=== PATIENT | female | born 1960 | race African-American/Black ===

== ENCOUNTER 2019-09-15 07:34 | Inpatient (IN) | payer BC, OTHER ==
[2019-09-02 11:46] LABS: HEMATOCRIT 38.3 % (37.0-47.0); HEMOGLOBIN 12.8 gm/dL (12.0-15.0); MCH 28.2 pg (26.0-34.0); MCHC 33.4 g/dL (28.0-37.0); MCV 84.5 fL (80.0-100.0); RBC 4.54 mil/uL (4.20-5.00); RDW 15.3 % (10.5-14.5); WBC 5.3 thou/uL (4.0-11.0)
[2019-09-02 11:56] LABS: ALBUMIN 3.9 g/dL (3.4-5.0); CALCIUM 9.3 mg/dL (8.5-10.1); CREATININE 0.9 mg/dL (0.6-1.0); POTASSIUM 4.2 mmol/L (3.5-5.1)
[2019-09-02 11:59] LABS: PROTIME 10.4 Seconds (9.3-11.4)
[2019-09-02 12:02] LABS: URINE BILIRUBIN NEGATIVE (Negative); URINE BLOOD NEGATIVE (Negative); URINE CLARITY CLEAR; URINE COLOR YELLOW; URINE GLUCOSE-RANDOM* NEGATIVE (Negative); URINE KETONES NEGATIVE (Negative); URINE LEUKOCYTES-REFLEX NEGATIVE (Negative); URINE NITRITE-REFLEX NEGATIVE (Negative); URINE PROTEIN (DIPSTICK) NEGATIVE (Negative); URINE UROBILINOGEN 0.2 E.U./dl (0.2-1.0)
[2019-09-15] VITALS (12 sets, daily range): BP systolic 113–157; BP diastolic 65–89
[~2019-09-15] VITALS: Ht 170.2 cm; Wt 95.3 kg
[~2019-09-15 07:34] MED LIST: ALEVE220 MG PO; AMITIZA 24 MCG24 MC1 PO; CALCIUM MAGNES1 EAC2 PO; CHOLEST OFF450 MG PO; COUMADIN 2 MG TA2 M1 PO; MELOXICAM7.5 MG PO; MOBIC7.5 MG PO; NEURONTIN300 MG PO; NORCO 10-325 T1 EACH PO; POTASSIUM CITR15 MEQ PO; PROTONIX40 M1 PO; VITAMIN D1000 UNI1 PO; VITAMINC500 PO; WELLBUTRIN 100100 MG PO; WELLBUTRIN SR150 MG PO
--- NOTE | 2019-09-15 13:45 | NUR ---
59 YO FEMALE ADMITTED TO 440 PER BED FROM PACU POST LEFT TOTAL KNEE. PATIENT PLACED ON PULSE OX, AROUSES TO NAME, RESP RATE 12, FALLING TO SLEEP. REQUESTING PAIN MED FOR HIS , EXPLAINED THAT WE NEEDED TO WATCH HER RESP STATUS AND SHE IS VERY DROWSEY. PATIENT WILL NOT VOICE A PAIN LEVEL SHE FALLS OFF TO SLEEP.
--- NOTE | 2019-09-15 20:18 | NUR ---
PATIENT VOIDED 325 ML OF URINE EARLIER, ATTEMPED CLEAR LIQUIDS BUT BECAME NAUSEATED, ZOFRAN OFFER, REFUSED IT AND THEN CALLED INTO THE ROOM FOR 50 ML OF EMESIS AFTER DRINKING SODA. ZOFRAN GIVEN. PAIN MEDS GIVEN WITH PAIN LEVEL NOW 4/10 WITH PAIN TREATMENT CLAIRE. PATIENT AND FAMILY UPDATED TO THE POC AND REASSURANCE GIVEN, VERBALIZED UNDERSTANDING.
[2019-09-16 00:15] VITALS: BP 114/67
--- NOTE | 2019-09-16 05:06 | NUR ---
ASSUMED PT CARE ON 09/15/19. PT HAS C/O N/V AND PAIN. PT IS CONCERNED ABOUT HER LEG BEING SWOLLEN. EVENING MEDICATION AND PAIN MEDICATION HAS BEEN ADMINISTERED. AFTER BEING HELPED TO THE RESTROOM THE AID HELPED THE PT BACK TO BED. WHEN I WENT TO EMPTY THE HEMOVAC I NOTICED THAT THE PATIENTS HEMOVAC TUBING WAS NOT ATTACHED. I NOTIFIED THE RN AND WE RE ATACHED. ICE HAS BEEN RE FILLED AND REAPPLIED TO THE PTS LEFT KNEE.
[2019-09-16 05:15] VITALS: BP 127/71
[2019-09-16 06:23] LABS: HEMATOCRIT 30.2 % (37.0-47.0); HEMOGLOBIN 9.9 gm/dL (12.0-15.0); MCH 28.4 pg (26.0-34.0); MCHC 32.8 g/dL (28.0-37.0); MCV 86.5 fL (80.0-100.0); RBC 3.49 mil/uL (4.20-5.00); RDW 15.3 % (10.5-14.5); WBC 8.2 thou/uL (4.0-11.0)
[2019-09-16 07:32] VITALS: BP 136/78
--- NOTE | 2019-09-16 07:38 | O ---
[facility] [place] [address] OPERATIVE REPORT Name: MARKUS LAWSON Room #: 440-P [facility] IN M.R.#: [id number] Admission: 09/15/19 Attend Phys: Ron Worley MD Discharge: Date of : 58 Report #: [id number] THIS REPORT FOR: //name// CC: Ron Carvalho DATE OF SERVICE: 09/15/2019 PREOPERATIVE DIAGNOSIS: End-stage degenerative arthritis, left knee with valgus malalignment. POSTOPERATIVE DIAGNOSIS: End-stage degenerative arthritis, left knee with valgus malalignment. PROCEDURE: Left total knee arthroplasty. SURGEON: Ron Worley MD INDICATIONS: This 59-year-old female has progressive degenerative arthritis of multiple joints. She underwent right total knee replacement several years ago with good result. She now has progressive valgus malalignment of the left knee and significant pain and limited range of motion. Clinical exam and x-rays confirm severe degenerative arthritis with moderate valgus malalignment. We discussed treatment options and elected to go ahead with total knee replacement. DESCRIPTION OF PROCEDURE: The patient was taken to the operating room where she was placed under general anesthesia. Prophylactic intravenous antibiotics were administered. The left knee and leg were meticulously prepped and draped and a thigh tourniquet inflated to 300 mmHg. An anterior longitudinal skin incision was made and carried along the medial retinaculum. The patella was reflected laterally. Marked degenerative change in all 3 compartments was noted. The Humphries and Nephew knee system was utilized. Intramedullary guides were used on both the femur and the tibia. The femoral cut was made in 5 degrees of valgus correcting the moderate preoperative valgus position. The tibia was cut perpendicular to the long axis of the bone, which also assisted in correcting the valgus position. The femur seemed best suited for a size 4 left femoral component. The tibia was also best suited for a size 4 left tibial component. The patellar surface was resected and a 35 mm patellar button seemed to fit nicely. Appropriate anchor holes were created. A trial reduction was performed and the knee seemed best suited for a size 12 mm polyethylene insert. This allowed full knee extension and flexion beyond 135 degrees. There appeared to be good improvement in the preoperative valgus position. At this point, the trial components were removed. The intramedullary canal was blocked with a bone block on both the femoral and tibial sides. Methyl methacrylate cement was mixed and injected into the porous surface of the proximal tibia. The Humphries and Nephew size 4 left Silvana II nonporous tibial baseplate was applied. It was [address] [address] OPERATIVE REPORT Name: MARKUS LAWSON Room #: 440-P [facility] IN M.R.#: [id number] Admission: 09/15/19 Attend Phys: Ron Worley MD Discharge: Date of : 58 Report #: [id number] positioned appropriately and impacted into place. It seated nicely and appeared to be secure. A 12 mm size 4 Legion cruciate retaining polyethylene liner was snapped into position. It seated nicely and appeared to be secure. The size 4 left cruciate retaining Legion porous femoral component was impacted on the distal femur. It seated nicely and appeared to be secure. A size 35 mm Silvana II patellar resurfacing component was placed on the patella using appropriate anchor holes and cement. It was secured with a patellar clamp until the cement had hardened. The range of motion, alignment, and stability were assessed and felt to be satisfactory. A single Hemovac was left in the wound exiting through a separate stab incision. The fascia was then closed with multiple #1 Vicryl suture. The deeper subcutaneous tissues were closed with 0 Monocryl. The more superficial subcutaneous tissues were closed with 2-0 Monocryl. The skin was closed with skin saray. The patient noted that she forms keloid scars and she requested whatever I might do to help assist with preventing this if possible. I placed 40 mg of Depo-Medrol diluted in 20 mL of Marcaine diffusely along the skin and subcutaneous edges. A sterile dressing was then applied. The patient was awakened and returned to recovery room in good condition. <ELECTRONICALLY SIGNED> By: Ron Worley MD 09/16/19 [id number] [id number] Ron Worley MD /nt
--- NOTE | 2019-09-16 08:37 | NUR ---
PT C/O PAIN AND PRESSURE ON HER L KNEE BUT REF TO TAKE HER PAIN MED DUE TO FEAR OF ADDICTION,PT ENCOURAGED TO TAKE HER MED AND BE ON TOP OF THE PAIN THE BLOCK SHE GOT DURING SURGERY IS WEARING OFF.PT LATER AGREED TO TAKE THE MEDICATION AFTER SHE WAS ENCOURAGED BY THIS NURSE.PT STILL STATED THAT HER PAIN IS STILL NOT MANAGED WITH THE MED,DR RICCI HERE THIS AM,HE WAS UPDATED ON PT'S CONDITION.REPORT TO AM NURSE TO FOLLOW UP ON.
[2019-09-16 12:23] LABS: HEMATOCRIT 28.8 % (37.0-47.0); HEMOGLOBIN 9.6 gm/dL (12.0-15.0)
[2019-09-16 13:12] LABS: CALCIUM 8.2 mg/dL (8.5-10.1); MAGNESIUM 1.8 mg/dL (1.8-2.4); POTASSIUM 4.4 mmol/L (3.5-5.1)
--- NOTE | 2019-09-16 13:27 | NUR ---
ASSESSMENT-PT LIVES AT HOME WITH HER . PRIOR PT WAS WALKING ON HER OWN AND DOING HER OWN ADLS. 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 PT THINKS SHE WILL NEED TO START WITH HH THERAPIES AND THEN GO TO OUTPT THERAPY. PT SAYS SHE WILL NEED A ROLLER WALKER FOR HOME. FOLLOWING TO ASSIST WITH DC PLANNING. PT SAYS SHE WILL GO TO OUTPT THERAPY OVER BY [facility].
[2019-09-16 16:00] VITALS: BP 130/68
--- NOTE | 2019-09-16 20:16 | NUR ---
Assumed care of pt at 0700. Pt a&ox4. At start of shift, pt states her pain is a 10/10. Prn pain medications administered. Provider aware. Polar pack oredered. Therapeutic communication used. Repositioned. Hemovac discontinued. Pt refused physical therapy. Pt's pain is now more controlled. Jaguar genao and SCDs on. SBA with walker and gaitbelt. Fall precautions in place. Report given to harris omalley.
[2019-09-16 20:20] LABS: URINE BILIRUBIN NEGATIVE (Negative); URINE BLOOD TRACE (Negative); URINE CLARITY CLOUDY; URINE COLOR YELLOW; URINE GLUCOSE-RANDOM* NEGATIVE (Negative); URINE KETONES NEGATIVE (Negative); URINE PROTEIN (DIPSTICK) NEGATIVE (Negative); URINE UROBILINOGEN 0.2 E.U./dl (0.2-1.0)
[2019-09-16 20:21] LABS: URINE LEUKOCYTES-REFLEX 3+ (Negative); URINE NITRITE-REFLEX POSITIVE (Negative)
[2019-09-16 20:28] VITALS: BP 124/70
[2019-09-16 20:29] LABS: BACTERIA-REFLEX 1-9 Few /HPF (None Seen); CASTS None Seen /LPF (None Seen); CRYSTALS None Seen /LPF (None Seen); MUCUS 0-3 Light strn/LPF (None Seen); SQUAMOUS 0-3 Few /LPF (0-3); URINE RBC 0-2 Rare /HPF (0-2); URINE WBC-REFLEX >25 Many /HPF (0-5); WBC CLUMPS Packed (None Seen); YEAST-REFLEX Present (None Seen)
--- NOTE | 2019-09-17 00:50 | NUR ---
ASSESSMENT COMPLETED. SO FAR PT HAS BEEN WALKING WELL TO THE BATHROOM WITH ASSIST X 2. C/O PAIN TO LEFT KNEE IN THE 7-8 RANGE.MOSTLY AGRAVATED WITH GETTING UP. TRYING TO STAY ON TOP OF THE PAIN MEDS-ALTERNATING BTW ORAL AND IV MORPHINE.PT IS OPTIMISTIC ABOUT BEING ABLE TO DO PT TOMORROW. WILL CONTINUE WITH POC TILL EOS.
[2019-09-17 04:32] VITALS: BP 126/74
[2019-09-17 08:06] LABS: HEMATOCRIT 26.6 % (37.0-47.0); MCH 28.7 pg (26.0-34.0); MCHC 33.7 g/dL (28.0-37.0); MCV 85.2 fL (80.0-100.0); RBC 3.13 mil/uL (4.20-5.00); RDW 14.6 % (10.5-14.5); WBC 10.8 thou/uL (4.0-11.0)
[2019-09-17 08:45] VITALS: BP 127/76
--- NOTE | 2019-09-17 14:37 | NUR ---
PT WILL NEED A ROLLER WALKER AT CT. DISCUSSED DME OPTIONS AND SHE HAD NO PREFERENCE. SCRIPT OBTAINED AND GANVE TO YUSRA FROM [employer] AND SHE WILL ISSUE PT A ROLLER WALKER. CASE DISCUSSED WITH DR RICCI AND PT IS INTERESTED IN SERVICES. FOLLOWING.
--- NOTE | 2019-09-17 15:56 | NUR ---
FAXED REFERRAL TO [facility] SPOKE WITH EULALIO IN INTAKE SHE RECEIVED REFERRAL AND WILL REVIEW AND RUN INSURANCE. DP TO FOLLOW.
[2019-09-17 17:29] VITALS: BP 121/68
--- NOTE | 2019-09-17 17:41 | NUR ---
ASSUMED CARE OF PT AT 0700. PT TOLERATED PT VERY WELL BUT BEGAN TO FEEL PAIN IN HER L LEG AFTER WALKING. PER DOCTOR PAIN MEDICATION AND ANTIBIOTIC UPDATED IN EMAR. SEYMOUR DRESSING, DORI HOSE AND POLAR PACK IN PLACE. HEMO VAC DISCONTINUED ON 09/16/2019 DUE TO COMPLICATIONS. FALL PRECAUTIONS IN PLACE. BED IN LOWEST POSITION AND CALL LIGHT WITHIN REACH. WILL CONTINUE TO MONITOR THE PT.
[2019-09-17 19:36] VITALS: BP 133/97
--- NOTE | 2019-09-18 01:26 | NUR ---
ASSESSMENT COMPLETED. PT WALKING WELL TO THE BATHROOM. WHILE IN BED, SCDS AND POLAR POP IN USE TO L KNEE. PT C/O SOME NUMBNESS TO LLE, WALKED AND STRETCHED FOR A WHILE IN ROOM AND RELIEF OBTAINED. PT ALSO GIVEN PERCOCET FOR PAIN/ LLE WITH GOOD CIRCULATION, MOVEMENT AND SENSATION.NO SIGNS OF BLEEDING OR ANY HEMATOMA.PT IS GENERALLY FRUSTRATED ABOUT MOST OF THE CARE. SHE FEELS LIKE HER CALL LIGHT IS NOT BEING ANSWERED IN A TIMELY MANNER. PT ALSO SEEMS TO HAVE SOME ELEMENT OF ANXIETY. I GAVE HER MY PHONE SO SHE CAN CALL DIRECTLY IF CALL LIGHT RESPONSE TAKES TOO LONG.CALL LIGHT WITHIN REACH. WILL CONTINUE WITH POC TILL EOS.
[2019-09-18 06:09] LABS: HEMATOCRIT 25.9 % (37.0-47.0); HEMOGLOBIN 8.6 gm/dL (12.0-15.0); MCH 28.2 pg (26.0-34.0); MCHC 33.1 g/dL (28.0-37.0); MCV 85.3 fL (80.0-100.0); RBC 3.04 mil/uL (4.20-5.00); RDW 14.7 % (10.5-14.5); WBC 10.6 thou/uL (4.0-11.0)
[2019-09-18 08:33] VITALS: BP 144/75
[2019-09-18 09:47] VITALS: BP 144/75
[2019-09-18 11:11] VITALS: BP 144/75
[2019-09-18 11:37] VITALS: BP 144/75
[2019-09-18 13:13] VITALS: BP 144/75
--- NOTE | 2019-09-18 13:41 | NUR ---
Assumed care of pt at 0700. Pt a&ox4. Dressing clean and intact. SBA with walker and gait-belt. Pain controlled with prn pain meds. Polar pack in place. DORI hose and SCD in place. Family at bedside. Family discharged to home.
--- NOTE | 2019-09-18 14:46 | NUR ---
PT DISCHARGING TODAY TO [facility] FAXED DC ORDERS/SUMMARY SPOKE WITH RAMIRO IN INTAKE SHE RECEIVED DC ORDERS AND WILL NOTIFY PT TIME OF VISITS.
--- NOTE | 2019-09-19 12:03 | D ---
[facility] [place] [address] DISCHARGE SUMMARY Name: MARKUS LAWSON Room #: 440-P [facility] IN ..#: [id number] Admission: 09/15/19 Attend Phys: Ron Worley MD Discharge: 09/18/19 Date of : 58 Report #: [id number] THIS REPORT FOR: //name// CC: Ron Carvalho DATE OF SERVICE: 09/18/2019 FINAL DIAGNOSIS: End-stage degenerative arthritis, left knee. OPERATION PROCEDURE: Left total knee arthroplasty. HISTORY: This 59-year-old female has moderate degenerative arthritis in multiple joints. She underwent right total knee replacement in the past with good result. She presents now for left total knee replacement. HOSPITAL COURSE: The patient was admitted and taken to the operating room on 09/15/2019, she underwent left total knee arthroplasty, which she tolerated generally well. She did have a lot of problems with postoperative pain management and required both IV analgesics and oral analgesics. This gradually improved and she was able to taper down to either oral Percocet or oral hydrocodone. She was started on Xarelto for prophylaxis for DVT. She was noted to have some urinary irritability and a possible mild urinary tract infection and was started on Cipro. She resumed her other routine medications. Today, she seems safe and functional and feels independent for discharge. She will have family assistance at home. She is uncertain whether she wants to try some organized therapy at home or simply go to outpatient therapy early next week. DISCHARGE MEDICATIONS: Include vitamin D once daily, gabapentin 300 mg b.i.d., Amitiza 24 mcg b.i.d., potassium 50 mEq daily, hydrocodone 10 mg q.4 or 6 hours as needed for pain, Xarelto 10 mg daily, Cipro 500 mg b.i.d. for 1 week. She will call me if any problems or questions. I will plan to see her back in the office in about 5 days for followup. <ELECTRONICALLY SIGNED> By: Ron Worley MD 09/19/19 1203 [id number] Ron Worley MD /nt
== END 2019-09-18 13:00 | disposition home health service (06) | DRG 470 ==
LOC: TBA 07:34 → 4S 07:34 → PRE 08:42 → 4S 13:52 → PRE 15:49 → ENTRNSPT 09-18 12:48 → EDTRNSPTSTS 09-18 12:52 → 4S 09-18 13:00
PROVIDERS: Hospitalist; Nurse Practitioner; ADMIT Orthopaedic Surgery
PROC: 0SRD0J9 Replacement of Left Knee Joint with Synthetic Substitute, Cemented, Open Approach (ICD-10-PCS; principal; 2019-09-15)
DX: M17.12 Unilateral primary osteoarthritis, left knee (principal); D62 Acute posthemorrhagic anemia; N39.0 Urinary tract infection, site not specified; E11.9 Type 2 diabetes mellitus without complications; Z82.49 Family history of ischemic heart disease and other diseases of the circulatory system; Z83.3 Family history of diabetes mellitus; Z88.0 Allergy status to penicillin
CPT/HCPCS: 10102; 50010; 50101; 50415; 50954; 51130; 51225; 51412; 53364; 56525; 57095; 57104; 57180; 62110; 62900; 65060; 70005